=== PATIENT | male | born 1970 | race Caucasian/White ===

== ENCOUNTER 2020-12-23 14:10 | Inpatient (IN) | payer OTHER ==
[~2020-12-23] VITALS: Ht 175.3 cm; Wt 134.7 kg
--- NOTE | ~2020-12-23 | PROC ---
[address] [address] PROCEDURE REPORT Name: UBALDO CARD Room: [address] IN M.R.#: [id number] Admission: 12/23/20 Attend Phys: Dara Duque MD Discharge: 01/01/21 Date of : 72 Report #: [id number] THIS REPORT FOR: cc: Alyx Fisher MD, Stephanie J. MD [facility],Medical Records Staff ~ For GI report, please see the Provation report in Perceptive 7 content. By: 1500Medical Records Staff [facility] /AZEEM
[2020-12-23 14:36] VITALS: BP 144/94
[2020-12-23] MEDS ORDERED: LOPRESSOR50 MG PO (14:41)
[2020-12-23] MEDS ORDERED: NEURONTIN 300M300 M2 PO (14:42)
[2020-12-23] MEDS ORDERED: PRINIVIL20 M1 PO (14:42)
[2020-12-23] MEDS ORDERED: ALLOPURINOL 10100 M1 PO (14:42)
[2020-12-23] MEDS ORDERED: FOLIC ACID1 MG PO (14:43)
[2020-12-23] MEDS ORDERED: B-125000 MC1 SUBLING (14:43)
[2020-12-23] MEDS ORDERED: PRILOSEC OTC20 MG PO (14:43)
[2020-12-23 15:42] LABS: ABSOLUTE BASOPHILS 0.1 thou/uL (0.0-0.2); ABSOLUTE MONOCYTES 0.8 thou/uL (0.0-1.2); ABSOLUTE NEUTROPHILS 7.8 thou/uL (1.6-8.1); BASOPHILS 0.6 %; EOSINOPHILS 0.4 %; HEMATOCRIT 43.8 % (42.0-52.0); HEMOGLOBIN 14.8 gm/dL (14.0-18.0); LYMPHOCYTES 10.1 %; MCH 35.2 pg (26.0-34.0); MCHC 33.8 g/dL (28.0-37.0); MCV 104.1 fL (80.0-100.0); MONOCYTES 8.5 %; NUCLEATED RBCS 0 /100WBC; PLATELET COUNT* 140 thou/uL (150-400); POLYS 80.4 %; RBC 4.21 mil/uL (4.50-6.00); RDW-CV 14.3 % (10.5-14.5); WBC 9.6 thou/uL (4.0-11.0)
[2020-12-23 15:49] LABS: CALCIUM 7.9 mg/dL (8.5-10.1); CREATININE 1.5 mg/dL (0.6-1.3); POTASSIUM 5.1 mmol/L (3.5-5.1)
--- NOTE | 2020-12-23 15:49 | EKG ---
[place] [address] ELECTROCARDIOGRAM REPORT Name: UBALDO CARD Room: [facility]#: [id number] Admission: 12/23/20 Attend Phys: Discharge: Date of : 72 Date of Service: 12/23/20 152 Report #: [id number] THIS REPORT FOR: //name// [place] [facility] Test Date: 2020-12-23 Test Time: 15:21:35 Pat Name: UBALDO CARD Department: Room: Gender: Drawer In Hand: [facility] : 1970 Requested By: Shanti Perez Order Number: [id number] MD: Kelvin Jordan Measurements Intervals [place] Rate: 175 P: 250 [place]: 149 QRS: 174 QRSD: 116 T: 260 QT: 215 QTc: 367 Interpretive Statements atrial fibrillation incomplete RBBB Consider dextrocardia No previous ECG available for comparison Electronically Signed On 12-23-2020 15:49:10 SIGNS AND DISPLAYS SALES REPRESENTATIVE by Kelvin Jordan [email or web address] <ELECTRONICALLY SIGNED> By: Kelvin Jordan MD, [facility] 12/23/20 1549 D: [id number] 20 Kelvin Jordan MD, FACC /EPI
[2020-12-23 15:53] LABS: ALBUMIN 3.9 g/dL (3.4-5.0); TOTAL BILIRUBIN 1.6 mg/dL (<0.1-1.0); TOTAL PROTEIN 7.9 g/dL (6.4-8.2)
[2020-12-23 20:07] LABS: URINE BILIRUBIN NEGATIVE (Negative); URINE BLOOD 2+ (Negative); URINE COLOR YELLOW; URINE GLUCOSE-RANDOM NEGATIVE (Negative); URINE KETONES NEGATIVE (Negative); URINE LEUKOCYTES-REFLEX NEGATIVE (Negative); URINE NITRITE-REFLEX NEGATIVE (Negative); URINE PROTEIN TRACE (Negative); URINE UROBILINOGEN 0.2 E.U./dl (0.2-1.0)
[2020-12-23 20:09] LABS: URINE CLARITY HAZY
[2020-12-23 20:18] LABS: BACTERIA-REFLEX None Seen /HPF (None Seen); CASTS None Seen /LPF (None Seen); CRYSTALS None Seen /LPF (None Seen); SQUAMOUS 0-3 Few /LPF (0-3); URINE RBC 0-2 Rare /HPF (0-2); URINE WBC-REFLEX 0-5 Rare /HPF (0-5)
[2020-12-23 21:13] VITALS: BP 148/101
[2020-12-23 22:01] VITALS: BP 141/101
[2020-12-24] VITALS (33 sets, daily range): BP systolic 87–148; BP diastolic 61–112
[2020-12-24 03:42] LABS: HEMATOCRIT 39.6 % (42.0-52.0); HEMOGLOBIN 13.4 gm/dL (14.0-18.0); MCH 35.4 pg (26.0-34.0); MCHC 33.9 g/dL (28.0-37.0); MCV 104.3 fL (80.0-100.0); MPV 8.5 fl. (7.2-11.1); RBC 3.8 mil/uL (4.50-6.00); RDW-CV 14.3 % (10.5-14.5); WBC 7.6 thou/uL (4.0-11.0)
[2020-12-24 03:56] LABS: ALBUMIN 3.4 g/dL (3.4-5.0); CALCIUM 7.1 mg/dL (8.5-10.1); CREATININE 1.4 mg/dL (0.6-1.3); POTASSIUM 4.5 mmol/L (3.5-5.1); TOTAL BILIRUBIN 1.3 mg/dL (<0.1-1.0); TOTAL PROTEIN 6.9 g/dL (6.4-8.2)
[2020-12-24 11:02] LABS: BE -1.3 mmol/L (-2 to +3); PCO2 44.1 mmHg (35.0-45.0)
[2020-12-24 11:05] LABS: PO2 28.8 mmHg (75.0-100.0)
[2020-12-24 12:07] LABS: BE -3.4 mmol/L (-2 to +3); PO2 67.4 mmHg (75.0-100.0); pH 7.392 (7.340-7.450)
--- NOTE | 2020-12-24 17:07 | TEE ---
[place] [address] TRANSESOPHAGEAL ECHOCARDIOGRAM Name: KYAWJARRETTJoseph Alejandra Room: [address] IN [facility]#: [id number] Admission: 12/23/20 Attend Phys: Dara Duque, Discharge: Date of : 72 Date of Service: 12/24/20 1707 Report #: [id number] THIS REPORT FOR: cc: Alyx Fisher MD, Stephanie J. MD Liston, Michael J. MD [facility] ~ APPROVED REPORT Study performed: 12/24/2020 12:02:35 EXAM: Transesophageal Echocardiogram Patient Location: In-Patient Room #: 001 Status: routine BSA: 2.39 HR: 117 bpm BP: 126/89 mmHg Rhythm: Atrial Flutter Other Information Study Quality: Good Indications Atrial flutter Echo Enhancing Agent Indication: Rule out Shunt Agent(s) / Amount(s) Used: Agitated Saline 10 cc Procedure After obtaining informed consent, patient underwent transesophageal echo in the Bedside. Type of Sedation : Conscious Sedation Sedation was administered by Shilpi. Sedation start time: 1210 Case end Time: 1220 Sedation was achieved intravenously with: Versed (4) Fentanyl (100) Transesophageal probe was inserted and advanced into esophagus without difficulty by Roberto Stockton MD, FAC. Echo enhancement indication: R/O Septal defect. Echo enhancement agent administered: Agitated Saline The DMITRY was performed without complications. Synchronized Cardioversion acheived with 300 Joules after 1 attempt([place] [address] TRANSESOPHAGEAL ECHOCARDIOGRAM Name: UBALDO CARD Room: [address]#: [id number] Admission: 12/23/20 Attend Phys: Dara Duque, Discharge: Date of : 72 Date of Service: 12/24/20 1707 Report #: [id number] Rhythm following Synchronized Cardioversion: Normal Sinus Rhythm Throughout the procedure, the blood pressure, pulse oximetry, cardiac rhythm, and rate were monitored. The patient tolerated the procedure without adverse effects. Recovery from conscious sedation was uneventful and vital signs were stable. Left Ventricle The left ventricle is normal size. There is severe global hypokinesis of the left ventricle. There is normal left ventricular wall thickness. Left ventricular systolic function is moderate to severely decreased. LVEF is 15-20%. Right Ventricle The right ventricle is normal size. The right ventricular systolic function is normal. Atria The left atrium size is normal. No thrombus is visualized in the left atrium or appendage. The interatrial septum is intact with no evidence for an atrial septal defect. The right atrium size is normal. Aortic Valve The aortic valve is normal in structure. No aortic regurgitation is present. There is no aortic valvular stenosis. Mitral Valve The mitral valve is normal in structure. Mild mitral regurgitation. No evidence of mitral valve stenosis. Tricuspid Valve The tricuspid valve is normal in structure. Mild tricuspid regurgitation. Pulmonic Valve The pulmonary valve is normal in structure. There is no pulmonic valvular regurgitation. Great Vessels The aortic root is normal in size. Pericardium There is no pericardial effusion. <Conclusion> [place] [address] TRANSESOPHAGEAL ECHOCARDIOGRAM Name: UBALDO CARD Room: [address] IN [facility]#: [id number] Admission: 12/23/20 Attend Phys: Dara Duque, Discharge: Date of : 72 Date of Service: 12/24/201706 Report #: [id number] The left ventricle is normal size. There is normal left ventricular wall thickness. Left ventricular systolic function is moderate to severely decreased. LVEF is 15-20%. There is severe global hypokinesis of the left ventricle. The left atrium size is normal. No thrombus is visualized in the left atrium or appendage. Mild mitral regurgitation. Mild tricuspid regurgitation. <ELECTRONICALLY SIGNED> By: Roberto Stockton MD, FACC 12/24/201706 06 1707 Roberto Stockton MD, FACC /INF
[2020-12-25] VITALS (23 sets, daily range): BP systolic 93–136; BP diastolic 43–91
[2020-12-25 02:37] LABS: HEMATOCRIT 40.2 % (42.0-52.0); HEMOGLOBIN 13.3 gm/dL (14.0-18.0); MCH 35.1 pg (26.0-34.0); MCHC 33.2 g/dL (28.0-37.0); MCV 105.7 fL (80.0-100.0); MPV 9.1 fl. (7.2-11.1); RBC 3.8 mil/uL (4.50-6.00); RDW-CV 14.6 % (10.5-14.5); WBC 9.5 thou/uL (4.0-11.0)
[2020-12-25 02:43] LABS: ALBUMIN 3.5 g/dL (3.4-5.0); CALCIUM 6.7 mg/dL (8.5-10.1); POTASSIUM 5.7 mmol/L (3.5-5.1); TOTAL BILIRUBIN 1.2 mg/dL (<0.1-1.0); TOTAL PROTEIN 7.1 g/dL (6.4-8.2)
[2020-12-25 02:44] LABS: CREATININE 2.5 mg/dL (0.6-1.3)
--- NOTE | 2020-12-25 09:21 | CON ---
[address] [address] CONSULTATION Name: UBALDO CARD Room: [address] IN M.R.#: [id number] Admission: 12/23/20 Attend Phys: Dara Duque MD Discharge: Date of : 72 Report #: [id number] THIS REPORT FOR: cc: Alyx Fisher MD, Stephanie J. MD Biggs, F. Douglas MD [facility] ~ DATE OF CONSULTATION: 12/25/2020 CARDIOLOGY FOLLOWUP NOTE HISTORY OF PRESENT ILLNESS: The patient feels fairly well, has no cardiac complaints. He is having difficulty with bowel movements, however. He is denying chest pain, but he does have some shortness of breath. He remains in normal sinus rhythm. His EKG today is not in the chart. I will see that once obtained. Of note, he is hyponatremic with a sodium of 127 for uncertain reasons. Additionally, he is getting normal saline at 100 mL an hour. His chest x-ray does show bilateral infiltrates and could represent congestive heart failure. PHYSICAL EXAMINATION: VITAL SIGNS: Pulse 76, blood pressure 126/84, temperature 35.9, respirations 20. HEENT: Head atraumatic. Eyes: Clear. NECK: Supple. There is no jugular venous distention or hepatojugular reflux; however, he was sitting on the commode when I examined him. LUNGS: Decreased breath sounds in the bases. There was a bit of a prolonged expiratory phase as well. HEART: Revealed normal first and second heart sound. There was soft S4. There is no S3. There are no murmurs, rubs, thrills, heaves or gallops. PMI is not displaced. ABDOMEN: Soft, flat, nontender, no palpable masses, no organomegaly. EXTREMITIES: Reveal no cyanosis, clubbing or edema. IMPRESSION: 1. Atrial flutter that was probably prolonged now in normal sinus rhythm after cardioversion. 2. Obstructive sleep apnea. 3. Obesity. 4. Possible congestive heart failure. 5. Hyponatremia. RECOMMENDATION: Continue his amiodarone. Check a BNP as well as repeat his BMP and check a magnesium. Depending on the results of those, he may need to be diuresed. I would stop the saline at least until [place] [address] CONSULTATION Name: JARRETT CARDD Justyn Room: [address] IN [facility]#: [id number] Admission: 12/23/20 Attend Phys: Dara Duque MD Discharge: Date of : 72 Report #: [id number] in heart failure. If he is not in heart failure and if his sodium is low, the cause of her hyponatremia will have to be investigated. <ELECTRONICALLY SIGNED> By: Nishant Erwin MD, [facility] 12/25/20 0921 [id number]. Vik Erwin MD, NARENDRA /nt
[2020-12-25 09:42] LABS: CALCIUM 6.8 mg/dL (8.5-10.1); CREATININE 2.8 mg/dL (0.6-1.3); POTASSIUM 5.3 mmol/L (3.5-5.1)
[2020-12-25 17:25] LABS: CALCIUM 6.8 mg/dL (8.5-10.1); CREATININE 3.4 mg/dL (0.6-1.3); MAGNESIUM 1.6 mg/dL (1.8-2.4); POTASSIUM 5.7 mmol/L (3.5-5.1)
[2020-12-26] VITALS (21 sets, daily range): BP systolic 92–132; BP diastolic 46–74
[2020-12-26 04:52] LABS: ABSOLUTE BASOPHILS 0.1 thou/uL (0.0-0.2); ABSOLUTE EOSINOPHILS 0.1 thou/uL (0.0-0.7); ABSOLUTE LYMPHOCYTES 1.7 thou/uL (0.8-5.3); ABSOLUTE MONOCYTES 0.9 thou/uL (0.0-1.2); ABSOLUTE NEUTROPHILS 5.8 thou/uL (1.6-8.1); BASOPHILS 0.6 %; EOSINOPHILS 1.6 %; HEMATOCRIT 37.3 % (42.0-52.0); HEMOGLOBIN 12.3 gm/dL (14.0-18.0); LYMPHOCYTES 19.7 %; MCH 35.2 pg (26.0-34.0); MCV 106.6 fL (80.0-100.0); MONOCYTES 10.1 %; MPV 9.4 fl. (7.2-11.1); NUCLEATED RBCS 0 /100WBC; PLATELET COUNT* 117 thou/uL (150-400); RDW-CV 14.6 % (10.5-14.5); WBC 8.5 thou/uL (4.0-11.0)
[2020-12-26 05:13] LABS: CALCIUM 6.8 mg/dL (8.5-10.1); CREATININE 4.2 mg/dL (0.6-1.3); MAGNESIUM 1.4 mg/dL (1.8-2.4); PHOSPHORUS* 4.4 mg/dL (2.5-4.9); POTASSIUM 4.8 mmol/L (3.5-5.1)
[2020-12-26 05:20] LABS: ALBUMIN 3.2 g/dL (3.4-5.0); CALCIUM 6.8 mg/dL (8.5-10.1); CREATININE 4.2 mg/dL (0.6-1.3); POTASSIUM 4.8 mmol/L (3.5-5.1); TOTAL BILIRUBIN 0.8 mg/dL (<0.1-1.0); TOTAL PROTEIN 6.6 g/dL (6.4-8.2)
--- NOTE | 2020-12-26 11:12 | CON ---
[address] [address] CONSULTATION Name: UBALDO CARD Room: [address] IN M.R.#: [id number] Admission: 12/23/20 Attend Phys: Dara Duque MD Discharge: Date of : 72 Report #: [id number] THIS REPORT FOR: cc: Alyx Fisher MD, Stephanie J. MD Biggs, F. Douglas MD [facility] ~ DATE OF CONSULTATION: 12/26/2020 CARDIOLOGY HOSPITAL FOLLOWUP NOTE HISTORY OF PRESENT ILLNESS: The patient feels better he says. He says he is less short of breath. He has no other complaints. PHYSICAL EXAMINATION: VITAL SIGNS: His pulse was 64, blood pressure 101/53, respirations 21 and regular, temperature was 36.1 degrees. NECK: There was no pedro luis jugular venous distention or hepatojugular reflux. LUNGS: Revealed decreased breath sounds in the bases, otherwise they were normal. CARDIAC: Examination of heart revealed somewhat distant first and second heart sounds, although they were audible. There was a soft S4. There was no S3. There were no murmurs or rubs. ABDOMEN: Soft, flat, nontender. EXTREMITIES: There was 1+ ankle edema. LABORATORY DATA: Yesterday, his BNP was greater than 9000. His creatinine had gone up to 4.2. Today, his creatinine remains at 4.2. Sodium 134, potassium 4.3, chloride 100, BUN 33. Blood sugar was 111, calcium 6.8, magnesium 4.1. His albumin was 3.2. IMPRESSION: 1. Atrial flutter, now in normal sinus rhythm. 2. Cardiomyopathy. 3. Obstructive sleep apnea. 4. Acute on chronic renal failure. 5. Possible congestive heart failure. RECOMMENDATIONS: I would definitely have Renal Medicine see him. He will probably need some fluids, but will have to be judicious because I think he is at risk for heart failure in this context. Note, his ejection fraction is only 15-20%. I have stopped his losartan. <ELECTRONICALLY SIGNED> By: Nishant Erwin MD, FACC 12/26/20 1112 0724 [id number]. Vik Erwin MD, FACC /nt
--- NOTE | 2020-12-26 16:16 | CON ---
[address] [address] CONSULTATION Name: UBALDO CARD Room: [address] IN M.R.#: [id number] Admission: 12/23/20 Attend Phys: Dara Duque MD Discharge: Date of : 72 Report #: [id number] THIS REPORT FOR: cc: Alyx Fisher MD, Stephanie J. MD Pervez, Adeel MD ~ DATE OF CONSULTATION: 12/25/2020 Consult has been requested by Dr. Stockton. INDICATION FOR CONSULTATION: Obstructive sleep apnea. HISTORY OF PRESENT ILLNESS: This is a 50-year-old gentleman. I do not have his baseline creatinine available. His creatinine on 12/24 is 1.4. The patient chews tobacco. He has no known history of smoking cigarettes. He does have a history of heavy alcohol intake in the past. He has also used narcotics for pain control. There is no known current narcotic use. The patient is now admitted on 12/23. He has been in aflutter. He also has congestive heart failure. His left ventricular ejection fraction of only 15-20. He has been cardioverted. He is now on anticoagulation. He did have a CTA chest performed on the and this does not show pulmonary emboli. I do not see any definite evidence of infection either. Primarily, it shows changes consistent with congestive heart failure and acute renal failure. There has been a rise in his creatinine. It is now up to 2.8. His potassium is 5.3, but his magnesium is only 1.0. The patient is requiring significant amounts of Ativan for alcohol withdrawal and is currently on 1 mg q. 4 hours scheduled in addition to receiving more p.r.n. He is noted to have obvious apneas while he is asleep. He also is snoring loud whenever he is sleeping. He currently is on 4 liters nasal cannula. He is oxygenating adequately. He is also at this time hemodynamically stable and has a normal heart rate. The patient is very drowsy and therefore is unable to provide a further history or review of systems. PAST MEDICAL HISTORY: Hypertension, arthritis, chronic pain, exposure to ammy gas. CURRENT MEDICATIONS: List in [employer] reviewed. HOME MEDICATIONS: List in [employer] reviewed. SOCIAL HISTORY: His mother says that he drinks alcohol in large quantities and chews tobacco, but he has to her knowledge, never smoked cigarettes. Previous use of narcotics for pain control, [place] [address] CONSULTATION Name: UBALDO CARD Room: [address]#: [id number] Admission: 12/23/20 Attend Phys: Dara Duque MD Discharge: Date of : 72 Report #: [id number] IMMUNIZATION HISTORY: His mother has a CDC card indicating that he received 2 doses of Avancen MOD COVID-19 vaccine in 10/2020. FAMILY HISTORY: No pertinent family history. PHYSICAL EXAMINATION: GENERAL: He is very drowsy. He is arousable. VITAL SIGNS: Has a pulse of 76 and a blood pressure of 126/84. He is saturating in the mid 90s, around 95%-96% on 4 liters nasal cannula. Respiratory rate is highly variable. When awake, it is up to 20. When asleep, it is in the low teens. At times, he has had apneas. He is afebrile. His body mass index is 42. HEENT: Head is normocephalic. There is a superficial injury toward the back of left head. There is no throat erythema. Narrow airway, Mallampati 4. NECK: Does not show raised JVP, asymmetry, mass or lymph nodes. CHEST: Breath sounds bilaterally equal, decreased. No added sounds. HEART: Regular. No murmur. ABDOMEN: Mildly distended, nontender. LOWER EXTREMITIES: 2+ edema, no calf tenderness. LABORATORY DATA: In [facility] reviewed. CTA chest as above. Compared chest x-rays performed on the and , there is increase in pulmonary vascular congestion on the compared with the . He just had an abdominal ultrasound performed. There is no hydronephrosis. Lab work as above. Arterial blood gas does not show CO2 retention. ASSESSMENT AND PLAN: 1. Obstructive sleep apnea/acute hypoxemic respiratory failure secondary to congestive heart failure. He obviously has obstructive sleep apnea. He may have central sleep apnea as well. Also, he appears to be in respiratory failure secondary to heart failure. We will see if it is feasible to place him on a BiPAP while asleep at this time. He does have a head injury. We will need to try to avoid placing any straps over this injury if feasible and if the patient remains calm on BiPAP, then we will place him on while asleep. In the long run, he needs to be on a BiPAP while asleep long-term. As his pCO2 is not elevated, likely his insurance will ask us to do a sleep study before they approve it and will likely ask us to try a CPAP at home first as well. I will be happy to arrange all this for him after discharge if the patient is interested. 2. Acute renal failure and acute systolic congestive heart failure. Comparing the x-rays performed on the and the ; on the , pulmonary vascular congestion is more prominent than on the . Also, there is a rise in creatinine from 1.4 on the to 2.8 today. Likely, the patient has contrast-related acute renal failure. We do not have his baseline creatinine. [address] [address] CONSULTATION Name: UBALDO CARD Room: [address] IN [facility]#: [id number] Admission: 12/23/20 Attend Phys: Dara Duque MD Discharge: Date of : 72 Report #: [id number] He may have chronic renal insufficiency as well. Discussed with Dr. Brady. We will go ahead and obtain a Nephrology consult. Pending Nephrology review, I discontinued his losartan. He still is fluid overloaded as well. Hopefully, would not end up on hemodialysis. 3. Pulmonary infiltrates. These are secondary to congestive heart failure. I do not see any definite sign of infection on his CT. Doxycycline does have some nephrotoxicity, I would discontinue. We will review further and then I will be inclined to discontinue ceftriaxone soon as well. 4. Severe hypomagnesemia. His magnesium was only 1.0. He has received 800 mg of magnesium oxide this morning; however, I do not feel that it is likely to bring his magnesium level up. We would go ahead and give him 2 grams of magnesium IV and then recheck labs this evening. He may need more magnesium IV. 5. Alcohol withdrawal. He is on Ativan and on folic acid. I went ahead and added thiamine. For now, we will see how he does on Ativan. If he is to decline, then I will consider giving him Precedex. 6. Atrial flutter. Note that he has been cardioverted. Note that he is also on anticoagulation. 7. Gastrointestinal prophylaxis, on Protonix. The patient is critically ill at this time. Total time spent providing critical care to this patient today is around 40 minutes. <ELECTRONICALLY SIGNED> By: Lucio Tererll MD 12/26/20 1616 1140 [id number] Terrell MD /nt
[2020-12-27] VITALS (22 sets, daily range): BP systolic 104–166; BP diastolic 42–78
[2020-12-27 04:09] LABS: ABSOLUTE LYMPHOCYTES 1.5 thou/uL (0.8-5.3); HEMOGLOBIN 12.3 gm/dL (14.0-18.0); MPV 9.5 fl. (7.2-11.1); PLATELET COUNT* 117 thou/uL (150-400)
[2020-12-27 04:14] LABS: ABSOLUTE EOSINOPHILS 0.1 thou/uL (0.0-0.7); ABSOLUTE MONOCYTES 0.9 thou/uL (0.0-1.2); ABSOLUTE NEUTROPHILS 5.8 thou/uL (1.6-8.1); BASOPHILS 0.5 %; EOSINOPHILS 1.7 %; HEMATOCRIT 37.1 % (42.0-52.0); LYMPHOCYTES 17.8 %; MCH 35.8 pg (26.0-34.0); MCHC 33.1 g/dL (28.0-37.0); MCV 108.3 fL (80.0-100.0); MONOCYTES 10.5 %; NUCLEATED RBCS 0 /100WBC; POLYS 69.5 %; RBC 3.43 mil/uL (4.50-6.00); RDW-CV 14.9 % (10.5-14.5); WBC 8.4 thou/uL (4.0-11.0)
[2020-12-27 04:17] LABS: MAGNESIUM 1.6 mg/dL (1.8-2.4); POTASSIUM 4.9 mmol/L (3.5-5.1)
[2020-12-27 04:21] LABS: ALBUMIN 3.2 g/dL (3.4-5.0); CALCIUM 6.8 mg/dL (8.5-10.1); POTASSIUM 4.9 mmol/L (3.5-5.1); TOTAL BILIRUBIN 0.7 mg/dL (<0.1-1.0); TOTAL PROTEIN 6.9 g/dL (6.4-8.2)
--- NOTE | 2020-12-27 11:10 | CON ---
[address] [address] CONSULTATION Name: UBALDO ABDUL Room: [address] IN .R.#: [id number] Admission: 12/23/20 Attend Phys: Dara Duque MD Discharge: Date of : 72 Report #: [id number] THIS REPORT FOR: cc: Alyx Fisher MD, Stephanie J. MD Arakelov, Alexandr V. MD ~ DATE OF CONSULTATION: 12/26/2020 REQUESTING PHYSICIAN: Dr. Duque. REASON FOR CONSULTATION: Acute kidney injury. HISTORY OF PRESENT ILLNESS: Mr. Abdul is a 50-year-old white male with medical history significant for diabetes mellitus type 2, hypertension, obesity, alcohol abuse. He presents with complaints of not feeling well, was found to be in atrial fibrillation with rapid ventricular response. He was cardioverted into the normal sinus rhythm. His creatinine on admission was 1.5, is up to 4.2. His urine output is dropping. PAST MEDICAL HISTORY: As mentioned earlier. In terms of his renal functions, I do not have any value prior to this admission. SOCIAL HISTORY: Positive for alcoholism. FAMILY HISTORY: Positive for diabetes, obesity, and hypertension. REVIEW OF SYSTEMS: Positive for some swelling of his body all over, not feeling well, some dyspnea. PHYSICAL EXAMINATION: GENERAL: Awake, alert, oriented, obese man. VITAL SIGNS: Reviewed. His blood pressure is 100/74, heart rate is 65, afebrile. HEENT: Pupils round. NECK: Fatty. LUNGS: Decreased air movements. CARDIOVASCULAR: Regular rate. ABDOMEN: Obese. EXTREMITIES: Lower extremities with edema. ASSESSMENT: 1. Acute kidney injury, likely due to acute tubular necrosis. He is oliguric. He may require dialysis. 2. Diabetes mellitus type 2. 3. Obesity. [address] [address] CONSULTATION Name: UBALDO ABDUL Room: [address]#: [id number] Admission: 12/23/20 Attend Phys: Dara Duque MD Discharge: Date of : 72 Report #: [id number] 4. Hypertension. 5. Atrial fibrillation with rapid ventricular response, now in sinus rhythm. PLAN: 1. Supportive care. 2. Avoid nephrotoxins. 3. Follow labs. Again, he may require dialysis soon. <ELECTRONICALLY SIGNED> By: Braxton Prescott MD 12/27/20 1110 0939 [id number] Prescott MD /nt
[2020-12-28 01:13] VITALS: BP 151/76
[2020-12-28 04:50] VITALS: BP 141/71
[2020-12-28 04:50] LABS: ABSOLUTE EOSINOPHILS 0.1 thou/uL (0.0-0.7); ABSOLUTE LYMPHOCYTES 1.3 thou/uL (0.8-5.3); ABSOLUTE NEUTROPHILS 5.2 thou/uL (1.6-8.1); BASOPHILS 0.5 %; EOSINOPHILS 1.8 %; HEMATOCRIT 35.8 % (42.0-52.0); HEMOGLOBIN 11.9 gm/dL (14.0-18.0); LYMPHOCYTES 17.3 %; MCH 35.4 pg (26.0-34.0); MCHC 33.3 g/dL (28.0-37.0); MCV 106.4 fL (80.0-100.0); MPV 9.8 fl. (7.2-11.1); NUCLEATED RBCS 0 /100WBC; PLATELET COUNT* 119 thou/uL (150-400); POLYS 67.4 %; RBC 3.37 mil/uL (4.50-6.00); RDW-CV 14.3 % (10.5-14.5); WBC 7.7 thou/uL (4.0-11.0)
[2020-12-28 05:00] LABS: CALCIUM 7.1 mg/dL (8.5-10.1); CREATININE 4.6 mg/dL (0.6-1.3); MAGNESIUM 1.9 mg/dL (1.8-2.4); POTASSIUM 4.3 mmol/L (3.5-5.1); TOTAL BILIRUBIN 0.6 mg/dL (<0.1-1.0); TOTAL PROTEIN 6.6 g/dL (6.4-8.2)
[2020-12-28 08:00] VITALS: BP 115/72
[2020-12-28 09:08] LABS: HEPATITIS B SURFACE AG Negative (Negative)
[2020-12-28 11:51] VITALS: BP 126/26
[2020-12-28 12:00] VITALS: BP 116/70
[2020-12-28 20:00] VITALS: BP 129/84
[2020-12-29 00:22] VITALS: BP 139/76
[2020-12-29 05:25] LABS: HEMATOCRIT 35.5 % (42.0-52.0); HEMOGLOBIN 11.8 gm/dL (14.0-18.0); MCH 34.9 pg (26.0-34.0); MCHC 33.4 g/dL (28.0-37.0); MCV 104.5 fL (80.0-100.0); MPV 9.4 fl. (7.2-11.1); RBC 3.39 mil/uL (4.50-6.00)
[2020-12-29 05:30] LABS: CALCIUM 7.2 mg/dL (8.5-10.1); MAGNESIUM 1.6 mg/dL (1.8-2.4); POTASSIUM 4.3 mmol/L (3.5-5.1); TOTAL BILIRUBIN 0.6 mg/dL (<0.1-1.0); TOTAL PROTEIN 6.7 g/dL (6.4-8.2)
[2020-12-29 05:35] VITALS: BP 146/83
[2020-12-29 07:55] VITALS: BP 128/82
[2020-12-29 12:28] VITALS: BP 139/77
--- NOTE | 2020-12-29 17:23 | CON ---
[address] [address] CONSULTATION Name: KYAWJARRETTD Justyn Room: [address] IN .R.#: [id number] Admission: 12/23/20 Attend Phys: Dara Duque MD Discharge: Date of : 72 Report #: [id number] THIS REPORT FOR: cc: Alyx Fisher MD, Stephanie J. MD Namin, Farid M. MD ~ cc: Alyx Fisher MD DATE OF CONSULTATION: 12/28/2020 Please note at the time of this dictation, the patient was seen and physically examined by myself. REASON FOR CONSULTATION: Liver disease, likely alcohol induced. HISTORY OF PRESENT ILLNESS: This is a 50-year-old male who presented to the Emergency Room having noted repeated syncopal episodes over the past month. His most recent episode was last evening when he fell down some stairs, sustaining a head injury to the left parietal region. He also was known to be diabetic. He also drinks excessively, 5-6 large cocktails every evening, which is equivalent to a fifth of vodka daily. The patient states he has never had an EGD or colonoscopy done before. He states he denies any nausea or vomiting; however, he does have some occasional acid reflux and he has been taking Prilosec for the last several years. He does not recall the dosage if it is 20 or 40. He has not noticed any difficulty with his swallowing. He denies any abdominal pain. He states his bowels move daily, soft and formed without evidence of any bright red blood or melena. It was also noted at the time when he presented here to the Emergency Room that he was in atrial flutter with a rapid ventricular response. Cardiology was consulted and he was cardioverted at that time. He is currently on Eliquis and that will need to be held in consult with Cardiology at this time. ALLERGIES: No known drug allergies. MEDICATIONS: From home include Lopressor, Prinivil, Neurontin, Zyloprim, Prilosec over the counter, folic acid and B12. PAST MEDICAL HISTORY: Hypertension, arthritis, chronic pain. He has been exposed to ammy gas numbness and other issues from this. PAST SURGICAL HISTORY: Negative. FAMILY HISTORY: Negative except for mother having history of colon polyps. SOCIAL HISTORY: Lives alone. He does chew tobacco on a [place] [address] CONSULTATION Name: UBALDO CARD Room: [address]#: [id number] Admission: 12/23/20 Attend Phys: Dara Duque MD Discharge: Date of : 72 Report #: [id number] any illegal drug use. However, he does drink daily, 5-6 large cocktails which is equivalent to a fifth of vodka daily and he has been doing this for many years. REVIEW OF SYSTEMS: Twelve-point review of systems is essentially negative except what is mentioned in the HPI. PHYSICAL EXAMINATION: VITAL SIGNS: Temperature 36.4, pulse 60, respirations 14, blood pressure 141/71. HEART: Irregular rhythm. LUNGS: Clear. ABDOMEN: Soft, very distended, nontender with positive bowel sounds throughout. SKIN: On the face, severe rosacea. LABORATORY DATA: Hemoglobin is 11.9, white count is 7.7, platelets are 119. BUN is 41, creatinine 4.6. GFR is 14. Total bili on admission was 1.6, he is down to 0.6; alk phos was 214; he is 235; ALT is 43 and remained the same; AST was 52 and he is down to 35. Acute hepatitis panel was negative. Ultrasound showed hepatomegaly with diffuse fatty liver disease and his CPD at 4 mm. IMPRESSION: 1. Transaminitis. 2. Anemia, mild. 3. Thrombocytopenia. 4. Gastroesophageal reflux disease. 5. Hepatomegaly. 6. Alcohol abuse, 5-6 large mixed drinks daily equivalent to a fifth of vodka. 7. Family history of mother, colon polyps. 8. Anticoagulant therapy, Eliquis, atrial fibrillation. 9. Chronic kidney disease, temporary dialysis. PLAN: 1. EGD tomorrow with Dr. Khalil for surveillance for any varices. 2. Labs AFP and GGTP. 3. Obtain clearance from Cardiology to hold his Eliquis. 4. Advised need to quit drinking. 5. Further recommendations to be made after Dr. Khalil sees [place] [address] CONSULTATION Name: UBALDO CARD Room: [address]#: [id number] Admission: 12/23/20 Attend Phys: Dara Duque MD Discharge: Date of : 72 Report #: [id number] Thank you for allowing us to participate in this patient's care. Please do not hesitate to call with any questions regard to this consult. <ELECTRONICALLY SIGNED> By: Carol Khalil MD 12/29/20 1723 0849 [id number] Khalil MD /nt
[2020-12-29 17:51] VITALS: BP 143/76
[2020-12-29 20:00] VITALS: BP 154/82
[2020-12-29 20:17] LABS: HEMATOCRIT 36.7 % (42.0-52.0); HEMOGLOBIN 12.5 gm/dL (14.0-18.0); MCH 35.7 pg (26.0-34.0); MCV 104.9 fL (80.0-100.0); MPV 8.5 fl. (7.2-11.1); RBC 3.5 mil/uL (4.50-6.00); WBC 6.9 thou/uL (4.0-11.0)
[2020-12-29 20:25] LABS: CALCIUM 7.5 mg/dL (8.5-10.1); CREATININE 3.4 mg/dL (0.6-1.3); POTASSIUM 4.3 mmol/L (3.5-5.1)
[2020-12-29 20:30] LABS: ALBUMIN 3.2 g/dL (3.4-5.0)
[2020-12-29 20:32] LABS: APTT 33.9 Seconds (25.0-31.3); INR 1.2; PROTIME 12.7 Seconds (9.20-11.50)
[2020-12-29 21:06] LABS: GLOBULIN TOTAL 2.9 g/dL (2.2-3.9); M-SPIKE Not Observed g/dL (Not Observed)
[2020-12-29 22:06] LABS: COMPLEMENT-C4 27 mg/dL (12-38)
[2020-12-30 00:14] VITALS: BP 154/91
[2020-12-30 04:38] VITALS: BP 176/84
[2020-12-30 05:10] LABS: HEMATOCRIT 35.4 % (42.0-52.0); HEMOGLOBIN 11.6 gm/dL (14.0-18.0); MCH 34.6 pg (26.0-34.0); MCHC 32.8 g/dL (28.0-37.0); MCV 105.5 fL (80.0-100.0); RBC 3.36 mil/uL (4.50-6.00); RDW-CV 14.2 % (10.5-14.5)
[2020-12-30 05:39] LABS: CALCIUM 7.4 mg/dL (8.5-10.1); MAGNESIUM 1.5 mg/dL (1.8-2.4); POTASSIUM 4.3 mmol/L (3.5-5.1); TOTAL BILIRUBIN 0.7 mg/dL (<0.1-1.0); TOTAL PROTEIN 6.7 g/dL (6.4-8.2)
[2020-12-30 07:41] VITALS: BP 143/85
[2020-12-30 11:07] LABS: GLOMERULR BASEM MEMBRN AB 3 units (0-20)
[2020-12-30 13:20] VITALS: BP 144/86
[2020-12-30 17:11] VITALS: BP 158/84
[2020-12-31] VITALS: BP 144/79
[2020-12-31 04:00] VITALS: BP 130/71
[2020-12-31 05:22] LABS: HEMATOCRIT 34.6 % (42.0-52.0); HEMOGLOBIN 11.8 gm/dL (14.0-18.0); MCH 35.4 pg (26.0-34.0); MCV 104.4 fL (80.0-100.0); MPV 8.6 fl. (7.2-11.1); RBC 3.31 mil/uL (4.50-6.00); RDW-CV 14.2 % (10.5-14.5)
[2020-12-31 05:48] LABS: ALBUMIN 2.8 g/dL (3.4-5.0); CALCIUM 7.7 mg/dL (8.5-10.1); CREATININE 2.1 mg/dL (0.6-1.3); MAGNESIUM 1.6 mg/dL (1.8-2.4); POTASSIUM 4.7 mmol/L (3.5-5.1); TOTAL BILIRUBIN 0.7 mg/dL (<0.1-1.0); TOTAL PROTEIN 6.5 g/dL (6.4-8.2)
[2020-12-31 08:00] VITALS: BP 155/94
--- NOTE | 2020-12-31 10:51 | EKG ---
[place] [address] ELECTROCARDIOGRAM REPORT Name: UBALDO CARD Room: [address] ADM IN .R.#: [id number] Admission: 12/23/20 Attend Phys: Dara Duque, Discharge: Date of : 72 Date of Service: 12/31/209[address] Report #: [id number] THIS REPORT FOR: //name// [facility] Test Date: 2020-12-31 Test Time: 09:13:31 Pat Name: UBALDO CARD Department: Room: [address] Gender: Monkey Breeder: 1884 : 1970 Requested By: Kelvin Jordan Order Number: [id number] Trudy MD: Kelvin Jordan Measurements Intervals [place] Rate: 87 P: 53 IN: 198 QRS: 112 QRSD: 124 T: 27 QT: 447 QTc: 538 Interpretive Statements Sinus rhythm Probable left atrial enlargement IVCD, consider atypical RBBB Probable anteroseptal infarct, old Compared to ECG 12/23/2020 15:21:35 Atrial fibrillation no longer present Electronically Signed On 12-31-2020 10:51:49 [employer] by Kelvin Jordan [email or web address] <ELECTRONICALLY SIGNED> By: Kelvin Jordan MD, FAC 12/31/20 1051 2 2 Kelvin Jordan MD, FAC /EPI
[2020-12-31 11:07] LABS: ANTI-DNA SCREEN <1 IU/mL (0-9); ANTI-RNP <0.2 AI (0.0-0.9); ANTI-SSA <0.2 AI (0.0-0.9); ANTIJO-I AB <0.2 AI (0.0-0.9)
[2020-12-31 13:53] VITALS: BP 138/81
[2020-12-31 16:00] VITALS: BP 155/91
[2020-12-31 20:00] VITALS: BP 152/94
[2021-01-01 00:29] VITALS: BP 157/94
[2021-01-01 04:00] VITALS: BP 148/90
[2021-01-01 05:20] LABS: HEMATOCRIT 35.5 % (42.0-52.0); HEMOGLOBIN 11.9 gm/dL (14.0-18.0); MCH 34.9 pg (26.0-34.0); MCHC 33.4 g/dL (28.0-37.0); MCV 104.4 fL (80.0-100.0); MPV 8.4 fl. (7.2-11.1); RBC 3.4 mil/uL (4.50-6.00); RDW-CV 14.1 % (10.5-14.5); WBC 5.9 thou/uL (4.0-11.0)
[2021-01-01 05:50] LABS: CALCIUM 8.1 mg/dL (8.5-10.1); CREATININE 1.6 mg/dL (0.6-1.3); MAGNESIUM 1.4 mg/dL (1.8-2.4); POTASSIUM 4.6 mmol/L (3.5-5.1)
[2021-01-01 08:00] VITALS: BP 160/100
[2021-01-01] MEDS ORDERED: Nicoderm 21MG/24HR P TRANSDERM (10:12)
[2021-01-01] MEDS ORDERED: TRAMADOL 50 MG50 MG PO (10:12)
[2021-01-01] MEDS ORDERED: IMDUR 60 MG TAB60 M1 PO (10:12)
[2021-01-01] MEDS ORDERED: HYDRALAZINE 2525 MG PO (10:12)
[2021-01-01] MEDS ORDERED: COREG6.25 MG PO (10:12)
[2021-01-01] MEDS ORDERED: PACERONE 200 M200 M1 PO (10:12)
[2021-01-01 11:46] VITALS: BP 136/78
[2021-01-01 13:53] VITALS: BP 136/78
--- NOTE | 2021-01-03 08:29 | CARD ---
[address] [address] CARDIAC CATH REPORT Name: JARRETT CARDD Justyn Room: [address]#: [id number] Admission: 12/23/20 Attend Phys: Dara Duque MD Discharge: 01/01/21 Date of : 72 Report #: [id number] THIS REPORT FOR: cc: Alyx Fisher MD, Stephanie J. MD Liston, Michael J. MD [facility] ~ cc: Alyx Fisher MD DATE OF SERVICE: 12/24/2020 CARDIAC PROCEDURE PROCEDURE: Transesophageal-guided cardioversion. INDICATION: Persistent atrial flutter. DESCRIPTION OF PROCEDURE: After informed consent was obtained, the patient underwent transesophageal echocardiogram, which will be reported separately. FINDINGS: No evidence of intracardiac thrombus. DC cardioversion was carried out. The patient was cardioverted from atrial flutter to normal sinus rhythm with a single biphasic shock of 300 joules. The patient tolerated the procedure well without complication. IMPRESSION: 1. Persistent atrial flutter. 2. Successful direct current cardioversion to normal sinus rhythm. <ELECTRONICALLY SIGNED> By: Roberto Stockton MD, [facility] 01/03/21 0829 1540 [id number] Stockton MD, FACC /nt
--- NOTE | 2021-01-03 08:29 | CON ---
[address] [address] CONSULTATION Name: UBALDO CARD Room: [address]#: [id number] Admission: 12/23/20 Attend Phys: Dara Duque MD Discharge: 01/01/21 Date of : 72 Report #: [id number] THIS REPORT FOR: cc: Alyx Fisher MD, Stephanie J. MD Liston, Michael J. MD [facility] ~ DATE OF CONSULTATION: 12/23/2020 CARDIOLOGY CONSULTATION INDICATION: Atrial flutter. HISTORY OF PRESENT ILLNESS: The patient is a 50-year-old gentleman who presented to the Emergency Room with syncope. He has had complaints of feeling lightheaded and dizzy for several days to a month. He reports a previous history of hypertension. He has had shortness of breath and palpitations. He denies orthopnea. He is not having chest pain. PAST MEDICAL HISTORY: Hypertension, arthritis, chronic pain, exposure to ammy gas with paresthesias. HOME MEDICATIONS: Metoprolol tartrate 1 tablet b.i.d., lisinopril 20 mg daily, gabapentin 300 mg at bedtime, allopurinol 100 mg daily, omeprazole 20 mg daily, folic acid 1 mg daily, B12 one tablet daily. ALLERGIES: None. SOCIAL HISTORY: The patient drinks alcohol moderately. He does not smoke. FAMILY HISTORY: Noncontributory. REVIEW OF SYSTEMS: A 14-point review of systems otherwise unremarkable. PHYSICAL EXAMINATION: VITAL SIGNS: Blood pressure is 144/94, pulse is currently 130-140 beats per minute. GENERAL: This is a pleasant gentleman with rosacea. He is in no distress. HEENT: Extraocular muscles intact. Mucous membranes are moist. NECK: Shows no jugular venous distention. CHEST: Reveals clear lung rashid. CARDIAC: Reveals a tachycardic rhythm without obvious gallop or murmur. ABDOMEN: Protuberant, soft and nontender. EXTREMITIES: Show 1+ ankle edema. SKIN: [place] [address] CONSULTATION Name: UBALDO CARD Room: [address]#: [id number] Admission: 12/23/20 Attend Phys: Dara Duque MD Discharge: 01/01/21 Date of : 72 Report #: [id number] DIAGNOSTIC DATA: A 12-lead EKG shows atrial flutter with 2:1 conduction. I do not appreciate acute changes. LABORATORY DATA: Reviewed. Sodium 134, potassium 5.1, chloride 97, bicarbonate 25, BUN 11, creatinine 1.5, serum glucose 132. High sensitivity troponin 15, hemoglobin 14.8, platelet count 140,000, white blood cell count 9.6. Chest x-ray shows cardiomegaly with mild infiltrate. IMPRESSION AND RECOMMENDATIONS: 1. Atrial flutter with 2:1 conduction. The patient is hemodynamically stable. Plan diltiazem bolus and drip for rate control. If this fails, we will digoxin. If this fails, we will consider an amiodarone bolus and drip for cardioversion. Echocardiogram ordered and will be obtained after rate control/rhythm control. CHADS score is 1 for hypertension. No anticoagulation at this time. 2. Hypertension. Blood pressure adequately controlled at present. Continue home regimen of metoprolol and lisinopril. <ELECTRONICALLY SIGNED> By: Roberto Stockton MD, FACC 01/03/21 0829 1533 00Roberto Stockton MD, FACC /nt
--- NOTE | 2021-01-04 16:06 | PATH ---
[address] [address] PATHOLOGY RPT PROCEDURE Name: SALOMON CARD Room: [address] M[address]R.#: [id number] Admission: 12/23/20 Date of : 72 Discharge: 01/01/21 Report #: [id number] Path Case #: [id number] [facility] Accession Number: [id number] . 01 Material submitted: . gastrointestinal site - GASTRITIS TO R/O H PYLORI . 01 Clinical history: . R/O H PYLORI EGD IN OR . 02 Diagnosis: Tissue submitted as "gastritis": - Mild nonspecific chronic gastritis, negative for Helicobacter pylori organisms and dysplasia. (MATHEW:pit; 01/04/2021) . Special stain: H. pylori immuno QTP 01/04/2021 1137 Local . 02 Electronically signed: . Mustapha Tovar MD, Pathologist NPI- [id number] . 01 Gross description: . The specimen is received in formalin, labeled "Salomon Franko, gastritis to R/O H. pylori". Received is a segment of pale harvey tissue measuring 0.6 cm in maximum dimensions. The specimen is submitted entirely in cassette A1. (CAA; 01/03/2021) QAC/QAC 01/03/2021 0917 Local . 02 Pathologist provided ICD-10: K29.50 . 02 CPT . 433591, N93403 Specimen Comment: Report sent to , DR RAMOS / DR RUIZ Performed at: 01 [facility] [address] [place] [address] [address], [place], [place] [id number] MD Chicho Lynn MD Phone: [phone] Performed at: [address] [facility] [address] [address], [place], [place] [id number] MD Mustapha Tovar MD Phone: [phone]
== END 2021-01-01 14:10 | disposition home health service (06) | DRG 177 ==
LOC: M.ERS 14:10 → M.TBA-ER 16:34 → M.ICU 16:34 → M.2W 12-27 20:36
PROVIDERS: Internal Medicine; Internal Medicine Critical Care Medicine; Internal Medicine Nephrology; Physician Assistant; ADMIT Internal Medicine; ATTEND Internal Medicine
DX: J15.6 Pneumonia due to other Gram-negative bacteria (principal); N17.0 Acute kidney failure with tubular necrosis; I50.33 Acute on chronic diastolic (congestive) heart failure; J96.01 Acute respiratory failure with hypoxia; I13.0 Hypertensive heart and chronic kidney disease with heart failure and stage 1 through stage 4 chronic kidney disease, or unspecified chronic kidney disease; Z68.41 Body mass index [BMI] 40.0-44.9, adult; E87.1 Hypo-osmolality and hyponatremia; K76.6 Portal hypertension; F10.239 Alcohol dependence with withdrawal, unspecified; I48.20 Chronic atrial fibrillation, unspecified; Z79.01 Long term (current) use of anticoagulants; Z20.822 Contact with and (suspected) exposure to COVID-19; M19.90 Unspecified osteoarthritis, unspecified site; E11.22 Type 2 diabetes mellitus with diabetic chronic kidney disease; N18.30 Chronic kidney disease, stage 3 unspecified; W18.39XA Other fall on same level, initial encounter; Y93.89 Activity, other specified; Y92.89 Other specified places as the place of occurrence of the external cause; Y99.8 Other external cause status; E66.01 Morbid (severe) obesity due to excess calories; K31.89 Other diseases of stomach and duodenum